=== PATIENT | male | born 1985 | race Two or more races ===

== ENCOUNTER 2022-03-20 05:20 | Day surgery (SDC) | payer OTHER ==
[~2022-03-20] VITALS: Ht 177.8 cm; Wt 74.8 kg
[~2022-03-20 05:20] MED LIST: ACID REDUCER20 M1 PO
[2022-03-20] MEDS ORDERED: PERCOCET 5-3251 EACH PO (09:11)
== END 2022-03-20 15:05 | disposition home or self-care (01) ==
LOC: CIR.AMB 05:20
PROVIDERS: ATTEND Surgery
DX: K64.8 Other hemorrhoids (principal); K64.4 Residual hemorrhoidal skin tags; K62.5 Hemorrhage of anus and rectum; K62.89 Other specified diseases of anus and rectum; Z91.013 Allergy to seafood; Z20.822 Contact with and (suspected) exposure to COVID-19; F17.210 Nicotine dependence, cigarettes, uncomplicated